=== PATIENT | male | born 2000 | race Caucasian/White ===

== ENCOUNTER 2020-09-18 17:05 | Outpatient (REF) | payer OTHER, SELFPAY | END 2020-09-18 17:06 | disposition home or self-care (01) | LOC: HO.LAB 17:05 | PROVIDERS: PCP Family Medicine; Visit Provider Internal Medicine | DX: Z20.828 Contact with and (suspected) exposure to other viral communicable diseases (principal) | CPT/HCPCS: C9803; U0003 ==

== ENCOUNTER 2020-11-16 16:33 | Outpatient (REF) | payer OTHER, SELFPAY | END 2020-11-16 16:34 | disposition home or self-care (01) | LOC: HO.LAB 16:33 | PROVIDERS: Visit Provider Internal Medicine | DX: Z20.822 Contact with and (suspected) exposure to COVID-19 (principal) | CPT/HCPCS: 36415; C9803; U0003 ==